=== PATIENT | female | born 2000 | race Caucasian/White ===

== ENCOUNTER 2020-05-12 08:35 | Emergency (ER) | payer SELFPAY ==
[~2020-05-12] VITALS: Ht 154.9 cm; Wt 80.9 kg
[2020-05-12] MEDS ORDERED: ONDANSETRON ODT 4 MG PO ONE (09:00)
--- NOTE | 2020-05-12 09:28 | NUR ---
Patient is calm and cooperative, complains of nausea. Denies vomiting, RUQ pain with deep palpation. Pt ambulates with even steady gait in steve acute distress. urine sent. labs drawn. Awaiting results.
[2020-05-12 09:32] LABS: BASOPHILS % (AUTO) 1 % (0-1); EOSINOPHILS % (AUTO) 2 % (1-7); LYMPHOCYTES % (AUTO) 21 % (22-44); MEAN CORPUSCULAR HEMOGLOBIN 31.2 pg (27.0-34.8); MEAN CORPUSCULAR HGB CONC 33.9 g/dL (32.4-35.8); MONOCYTES % (AUTO) 9 % (2-9); NEUTROPHILS % (AUTO) 68 % (42-75); PLATELET COUNT 321 x10^3/uL (130-400); RED BLOOD COUNT 4.23 x10^6/uL (3.82-5.3); RED CELL DISTRIBUTION WIDTH 12.8 % (9.6-15.2)
[2020-05-12] MEDS ORDERED: ONDANSETRON ODT 4 MG ONE (09:35)
[2020-05-12 09:37] LABS: MD NO
--- NOTE | 2020-05-12 09:42 | NUR ---
Pt medicated, friend at bedside. Plan of care discussed, pending results.
[2020-05-12 09:43] LABS: ALANINE AMINOTRANSFERASE 21 U/L (12-78); ALBUMIN 3.9 g/dL (3.4-5.0); ANION GAP 8 mmol/L (5-15); CHLORIDE 109 mmol/L (98-107)
[2020-05-12 09:47] LABS: MICROSCOPIC AUTO
[2020-05-12 09:48] LABS: ALKALINE PHOSPHATASE 98 U/L (45-117); BILIRUBIN,TOTAL 0.2 mg/dL (0.2-1.0); TOTAL PROTEIN 8.2 g/dL (6.4-8.2)
--- NOTE | 2020-05-12 10:26 | NUR ---
labs back,discussed with ERP.
--- NOTE | 2020-05-12 10:41 | NUR ---
Dr Nichols and myself at bedside. planof care discussed. IV started. VS checked.
--- NOTE | 2020-05-12 11:02 | NUR ---
Pt up to bathroom even steady gait Pain increases with ambulation.
--- NOTE | 2020-05-12 12:00 | NUR ---
BREAK RN: PT TO CT
[2020-05-12] MEDS ORDERED: OMNIPAQUE 350 MG/ML, 100ML BOTTLE ONE (12:04)
[2020-05-12] MEDS ORDERED: CEFDINIR 300 MG CAPSULE ONE (12:44)
[2020-05-12 12:55] VITALS: BP 106/72
[2020-05-12] MEDS ORDERED: CEFDINIR 300 MG CAPSULE PO ONE (13:00)
== END 2020-05-12 12:58 | disposition home or self-care (01) ==
LOC: ED 09:10
DX: N30.00 Acute cystitis without hematuria (principal); K59.00 Constipation, unspecified
CPT/HCPCS: 36415; 74177; 76700; 80053; 81001; 83690; 84703; 85025; 87077; 87086; 99285; Q0162; Q9967